=== PATIENT | male | born 1970 | race Caucasian/White ===

== ENCOUNTER 2022-06-12 13:25 | Emergency (ER) | payer SELFPAY ==
[~2022-06-12] VITALS: Ht 182.9 cm; Wt 81.6 kg
[2022-06-12 13:32] VITALS: BP 162/99
--- NOTE | 2022-06-12 14:51 | NUR ---
52 Y/O MALE BIBA FROM [place], PER EMS PT WAS FOUND SUPINE ON THE CURB WITH 2 BOTTLES OF VODKA BY HIS SIDE, 1 BOTTLE EMPTY, ANOTHER FULL. PT VERBALLY RESPONSIVE NKA PMH: DENIES
--- NOTE | 2022-06-12 15:23 | NUR ---
PT WC ASSISTED TO BED 9
--- NOTE | 2022-06-12 15:48 | NUR ---
PT ROAD TESTED, PER DR. DONATO SESAY TO BE SENT HOME
[2022-06-12 15:52] VITALS: BP 130/81
--- NOTE | 2022-06-12 15:52 | NUR ---
Patient discharged with v/s stable. Written and verbal after care instructions given and explained. Patient verbalized understanding. Ambulatory with steady gait. All questions addressed prior to discharge. Advised to follow up with PMD. PATIENT PROVIDED WITH UBER TO ADDRESS GIVEN BY PATIENT
== END 2022-06-12 15:52 | disposition home or self-care (01) ==
LOC: MED 13:25
DX: F10.129 Alcohol abuse with intoxication, unspecified (principal)
CPT/HCPCS: 99283